=== PATIENT | male | born 1985 | race Two or more races ===

== ENCOUNTER 2024-05-17 08:35 | Emergency (ER) | payer MEDICAID, SELFPAY ==
[2024-05-17 08:39] VITALS: BP 149/86; PULSE 95; RESP 18; TEMP 36.8; O2SAT 97; BMI 36.6
--- NOTE | 2024-05-17 08:49 | PC.NURSE ---
upon inspection, pts uvula swollen, erythemic. RR even and unlabored, pt managing saliva in triage. moved to [facility].
[2024-05-17 09:08] LABS: IDNOW Serial# 08D9AD1C; Strep A Nucleic Acid Negative (Negative)
--- NOTE | 2024-05-17 09:23 | ED_ITS ---
HPI - URI/Sore Throat General Chief Complaint: Upper Respiratory Symptoms Stated Complaint: Swollen tonsils-vomiting Time Seen by Provider: 05/17/24 09:05 Source: patient Mode of arrival: ambulatory Limitations: no limitations History of Present Illness ED Provider: Marah Jones PA-C HPI Narrative: 39 yo male presents to the ER evaluation of sore throat, blood nose, nausea and vomiting and chills that started last night. Patient reports he has had several episodes of vomiting and dry heaving. He has a sore throat that he feels like is swollen. He reports voice changes and difficulty swallowing. He states when he vomits he has had a bloody nose over and over again. He denies any associated abdominal pain, but the nausea persists. No fevers. He recently got back from camping in his worried about West Nile virus. Denies any rash. He also recently took care of his [id number]-hdh who had COVID-19. MD elicited complaint: sore throat and other (vomiting, bloody nose) Onset (ago): hour(s) Consistency: constant Severity: severe Able to tolerate fluids by mouth: Yes Exacerbating factors: swallowing Relieving factors: nothing Context: recent travel Associated symptoms: chills, voice changes, headache, sore throat, nausea and vomiting Treatments prior to arrival: none Related Data Previous Rx's ?Medication ?Instructions ?Recorded amoxicillin 875 mg-potassium 1 tab PO BID #20 tabs 05/17/24 clavulanate 125 mg tablet ibuprofen 600 mg tablet 600 mg PO Q8H PRN fever or pain 05/17/24 #10 tabs ondansetron 4 mg disintegrating 4 mg PO Q8H PRN nausea and 05/17/24 tablet vomiting #7 tabs prednisone 50 mg tablet 50 mg PO DAILY #5 tabs 05/17/24 Allergies Allergy/AdvReac Type Severity Reaction Status Date / Time shellfish derived Allergy Angioedema Verified 05/17/24 08:43 Review of Systems Review of Systems: Yes all other systems are reviewed and are negative PMFSH Social History Social History Advance Directives: Yes Advance Directives Information Provided: Yes Advance Directives on File: No Physical Exam Vital Signs: Vital Signs: Last Vital Signs Temp 98.5 F 05/17/24 10:45 Pulse 74 05/17/24 10:45 Resp 16 05/17/24 10:45 BP 138/84 08/22/24 10:45 Pulse Ox 97 05/17/24 10:45 O2 Del Method Room Air 05/17/24 10:45 BMI result Body Mass Index 36.6 Appearance: Alert. Oriented X3. Appears ill Head: normocephalic, atraumatic. Eyes: Pupils equal, round and reactive to light. ENT: Pharynx with moist mucus membranes. Uvula is swollen and erythematous, midline. Mild tonsillar swelling without exudate, +erythema. +voice changes. Neck: Normal inspection. Neck supple. Mild submandibular lymphadenopathy bilaterally. CVS: Normal heart rate and rhythm. Pulses normal. Respiratory: No respiratory distress. Breath sounds normal. Abdomen: Soft and nontender. +BS x4 Skin: Skin warm and dry. Normal skin color. Normal skin turgor. No rashes. Extremities: No lower extremity edema. No joint swelling. Neuro/psych: Oriented X 3. No motor deficit. No sensory deficit. CN II-XII intact. Normal speech and cognition. Medications Administered Discontinued Medications Generic Name Dose Route Start Last Admin Trade Name Byronq PRN Reason Stop Dose Admin Dexamethasone Sodium Phosphate 10 mg 05/17/24 09:36 05/17/24 09:49 Dexamethasone Sod Phosphate 10 Mg/Ml Vial PO 05/17/24 09:37 10 mg ONCE ONE Administration Ketorolac Tromethamine 30 mg 05/17/24 09:37 05/17/24 09:49 Ketorolac Tromethamine 30 Mg/Ml Vial IM 05/17/24 09:38 30 mg ONCE ONE Administration Lidocaine HCl 15 ml 05/17/24 09:36 05/17/24 09:49 Lidocaine Hcl Viscous 2 % 15 Ml Solution MUCOUS MEM 05/17/24 09:37 15 ml ONCE ONE Administration Ondansetron HCl 4 mg 05/17/24 09:36 05/17/24 09:49 Ondansetron Odt 4 Mg Tab.Rapdis TRANSLINGU 05/17/24 09:37 4 mg ONCE ONE Administration Medical Decision Making Medical Decision Making MDM Narrative: 39-year-old male presents to the ER for evaluation of sore throat, swollen tonsils, recurrent vomiting with bloody noses overnight along with chills. Symptoms started last night. No known sick contacts but he recently went camping. No rashes or fevers. No abdominal pain, chest, shortness of breath. On examination patient has erythematous and swollen uvula that is midline. His airway is patent then he is handling secretions normally. He does have some voice changes and pain with swallowing. He was ordered for oral Decadron, lidocaine, which he was able to tolerate p.o.. Strep swab was negative along with COVID, flu, RSV. His exam otherwise was benign. Girlfriend concerned about West Nile virus, she was counseled on appropriate testing and treatment for symptomatic care. Although this is less likely in this patient. There is concern for uvulitis so empiric antibiotics are being started along with steroids and pain control. We discussed the importance of continuing oral hydration at home, and return precautions were discussed. At this time comfortable discharge home with antibiotics and supportive care. If he has any worsening symptoms he will come back to the ER. Differential Diagnosis Differential Diagnoses: The differential diagnosis associated with the presentation includes uvilitis, epiglottitis, supraglotitis, strep throat, retropharyngeal abscess, peritonsilar abscess, COVID, viral pharyngitis Admission/Observation Consideration of admission/observation: Escalation of care including admission/observation considered Lab Data MDM Lab Attestation statement: I reviewed the patient's lab results. Labs: Lab Results 05/17/24 05/17/24 Range/Units 08:51 08:52 Influenza Type A (PCR) NEGATIVE (Negative) Influenza Type B (PCR) NEGATIVE (Negative) RSV RNA Qual (PCR) NEGATIVE (Negative) SARS-CoV-2 RNA (RT-PCR) NEGATIVE (Negative) S. pyogenes GrpA TAJ Negative (Negative) Independent Historian Clinical information obtained from an independent historian. History obtained from or confirmed by: Spouse Tests considered The following testing was considered but not selected: Considered CT scan of the neck however low clinical suspicion for any deeper infection or swelling Prescription Management I considered prescription management with: Pain Medication and Antibiotic Critical Care Time Critical Care Time Critical Care Time: No Discharge Plan Discharge Clinical Impression: Uvulitis Patient Disposition: Home, Self-Care Instructions: Uvulitis (ED) Additional Instructions: You tested negative for strep throat, COVID, flu, RSV. Take the prescribed antibiotic as directed, complete the entire course and do not miss any doses. Take the prescribed steroids as directed. Gargle with warm salt water 3 times per day. Take Motrin and Tylenol as needed for pain. Make sure drinking plenty of fluids. Prescriptions: New amoxicillin-pot clavulanate 875-125 mg tablet 1 tab PO BID Qty: 20 0RF prednisone 50 mg tablet 50 mg PO DAILY Qty: 5 0RF ibuprofen 600 mg tablet 600 mg PO Q8H PRN (Reason: fever or pain) Qty: 10 0RF ondansetron 4 mg tablet,disintegrating 4 mg PO Q8H PRN (Reason: nausea and vomiting) Qty: 7 0RF Stand Alone Forms: Work/School Release Interventions: ED Discharge Assessment Last Done: 05/17/24 10:45 Discharge Date/Time: 05/17/24 10:50 Print Language: Portuguese
[2024-05-17 09:34] LABS: Influenza A PCR NEGATIVE (Negative); Influenza B PCR NEGATIVE (Negative); Resp Syncy Virus RNA Qual PCR NEGATIVE (Negative); SARS COV2 PCR INHOUSE NEGATIVE (Negative)
[2024-05-17 09:48] VITALS: BP 138/84; PULSE 74; RESP 16; TEMP 36.9; O2SAT 97
[2024-05-17] MEDS: Ketorolac Tromethamine 30 MG/ML VIAL IM (09:49)
[2024-05-17] MEDS: Ondansetron ODT 4 MG TAB.RAPDIS TRANSLINGU (09:49)
[2024-05-17] MEDS: dexAMETHasone sod phosphate 10 MG/ML VIAL PO (09:49)
[2024-05-17] MEDS: Lidocaine HCl Viscous 2 % 15 ML SOLUTION MUCOUS MEM (09:49)
[2024-05-17 10:45] VITALS: BP 138/84; PULSE 74; RESP 16; TEMP 36.9; O2SAT 97
== END 2024-05-17 10:50 | disposition home or self-care (01) ==
PROVIDERS: Emergency Provider Emergency Medicine
DX: K12.2 Cellulitis and abscess of mouth (principal); J02.9 Acute pharyngitis, unspecified; Z03.818 Encounter for observation for suspected exposure to other biological agents ruled out; R11.2 Nausea with vomiting, unspecified; R51.9 Headache, unspecified
CPT/HCPCS: 0241U; 87651; 96372; 99283; 99284; J1100; J1885

== ENCOUNTER 2025-01-28 18:16 | Emergency (ER) | payer MEDICAID, SELFPAY ==
[2025-01-28 19:12] VITALS: BP 140/79; PULSE 81; RESP 18; TEMP 36.8; O2SAT 98; BMI 38.8
--- NOTE | 2025-01-28 19:19 | ED.GENADULT ---
HPI - General Adult General Chief complaint: General Medical Stated complaint: bump on left wrist Time Seen by Provider: 01/28/25 19:15 Source: patient Mode of arrival: ambulatory Limitations: no limitations History of Present Illness ED Provider: Ronaldo Galvez HPI narrative: 40 yold male with no pmh presents to the ED for left wrist lump that has been presents for months that is painful. Patient denies any recent trauma, fever, chills, redness, swelling of extremity, numbness, tingling, chest pain, or shortness of breath. Related Data Previous Rx's ?Medication ?Instructions ?Recorded amoxicillin 875 mg-potassium 1 tab PO BID #20 tabs 05/17/24 clavulanate 125 mg tablet ibuprofen 600 mg tablet 600 mg PO Q8H PRN fever or pain 05/17/24 #10 tabs ondansetron 4 mg disintegrating 4 mg PO Q8H PRN nausea and 05/17/24 tablet vomiting #7 tabs prednisone 50 mg tablet 50 mg PO DAILY #5 tabs 05/17/24 naproxen 500 mg tablet 500 mg PO BID PRN pain #14 tabs 01/28/25 Allergies Allergy/AdvReac Type Severity Reaction Status Date / Time shellfish derived Allergy Angioedema Verified 01/28/25 19:18 Review of Systems Review of Systems: left wrist lump Yes all other systems are reviewed and are negative PMFSH Social History Social History Advance Directives: No Advance Directives Information Provided: No Physical Exam ED Vital Signs: Vital Signs - 24 hr 01/28/25 19:12 01/28/25 19:30 Temperature 98.2 F 98.2 F Pulse Rate 81 81 Respiratory Rate 18 18 Blood Pressure 140/79 H 140/79 H Pulse Oximetry 98 98 Oxygen Delivery Method Room Air Room Air BMI result Body Mass Index 38.8 Const General: cooperative, healthy appearing, comfortable, no acute distress, well developed, alert, awake and Physically active Orientation/consciousness: patient oriented x3 HENMT Head: Yes normal to inspection, Yes No palpable skull fracture present, Yes normocephalic and Yes atraumatic Eyes General: appearance normal, both eyes and all related structures Neck Neck: Yes normal visual inspection, Yes full ROM, Yes no lymphadenopathy, Yes no meningeal signs, Yes trachea midline, Yes supple, No anterior neck swelling and No tender Chest Chest palpation & inspection: normal inspection of the chest and normal palpation of entire chest wall Resp Effort & Inspection: normal respiratory effort and able to speak in complete sentences Auscultation: clear to auscultation bilaterally Cardio Jugular venous distension: no JVD Heart sounds: S1 normal heart sound present and S2 normal heart sound present GI Inspection: Yes normal to inspection Palpation (GI): Soft to palpation, not firm, nontender, no guarding and not rigid General: Yes no CVA tenderness Back/Spine/Pelvis Back: no CVA tenderness and No back tenderness Skin General skin exam: no rashes or lesions noted, elasticity normal and turgor normal Neuro General: patient oriented x3, gait normal, tone normal, moves all extremities, Normal light touch and pain sensation, no meningeal signs, no focal motor deficits and CN's II-XI intact bilaterally Extrem General: Yes normal to inspection, Yes full ROM and Yes capillary refill normal Hand/finger images: 1. positive for ganglion cysts tender mass. negative for erythema, ecchymosis, deformity, swelling, pus discharge, or foul odor. Rest of extremity is normal Motor, neuro, and vascular exam is intact. Psych Appearance: grossly normal, well kempt and not disheveled Medical Decision Making Medical Decision Making MDM Narrative: 40-year-old male presents to the ED for left wrist pain for months due to a lump on his wrist that caused shoulder pain in his arm. Patient states repetitive movement of wrist. Patient denies any redness, bluish black discoloration, insect bite, red streaks, numbness/tingling, fever, or chills. Physical exam indicates left wrist ganglion cyst. Not suspecting DVT, abscess, cellulitis, lymphangitis, foreign body, arterial occlusion, or compartment syndrome. Patient informed he will need to follow-up hand surgeon orthopedic surgeon. Patient explained worrisome signs and informed to return to the ED immeidatley. Differential Diagnosis Differential Diagnoses: The differential diagnosis associated with the presentation includes (Exam cysts, abscess, lipoma) Independent Historian Clinical information obtained from an independent historian. History obtained from or confirmed by: Spouse (wie) and Other (patient) Prescription Management I considered prescription management with: Pain Medication Discharge Plan Discharge Clinical Impression: Ganglion cyst of dorsum of left wrist Patient Disposition: Home, Self-Care Instructions: Ganglion Cyst (ED) Additional Instructions: Recommend follow-up with hand surgeon or orthopedic surgeon. Also follow up with the primary care provider. You will need to rest your wrist to help with the pain. Return to the ED immediately for any increased swelling, bluish black discoloration, red streaks, fever, chills, hotness, coldness, stiffness, or any other concerning symptoms. Prescriptions: New naproxen 500 mg tablet 500 mg PO BID PRN (Reason: pain) Qty: 14 0RF No Action amoxicillin-pot clavulanate 875-125 mg tablet 1 tab PO BID Qty: 20 0RF prednisone 50 mg tablet 50 mg PO DAILY Qty: 5 0RF ibuprofen 600 mg tablet 600 mg PO Q8H PRN (Reason: fever or pain) Qty: 10 0RF ondansetron 4 mg tablet,disintegrating 4 mg PO Q8H PRN (Reason: nausea and vomiting) Qty: 7 0RF Referrals: [facility] [place] Orthopedic Surgeons [Provider Group] (Left ganglion cyst wrist) Dai Calle MD [Physician] - (Left wrist ganglion cyst) Stand Alone Forms: Work/School Release Interventions: ED Discharge Assessment Last Done: 01/28/25 19:30 Discharge Date/Time: 01/28/25 19:30 Print Language: Swedish
[2025-01-28 19:30] VITALS: BP 140/79; PULSE 81; RESP 18; TEMP 36.8; O2SAT 98
== END 2025-01-28 19:30 | disposition home or self-care (01) ==
PROVIDERS: Emergency Provider Emergency Medicine Emergency Medical Services
DX: M67.432 Ganglion, left wrist (principal)
CPT/HCPCS: 99282; 99283